=== PATIENT | male | born 2000 | race Caucasian/White ===

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

== ENCOUNTER 2022-06-10 17:49 | Emergency (ER) | payer BC, SELFPAY ==
--- NOTE | 2022-06-10 17:52 | ED.SKABFB ---
HPI - Skin/Abscess/Foreign Bdy General Chief complaint: Skin/Abscess/Foreign Body Stated complaint: Skin Sore Time Seen by Provider: 06/10/22 17:53 Source: patient and RN notes reviewed History of Present Illness HPI narrative: Patient is a 22-year-old male who presents the urgent care with complaints of a rash to bilateral armpits. Patient states he noticed it 2 to 3 days ago under the right arm and is now under the left as well. Patient states that he does sweat a lot and plays football. Patient has not used any new creams, detergents, lotions or deodorant. Patient has not done anything [id number] for his symptoms. No other acute complaints. No acute distress noted. Patient aware of the plan of care. Some parts of this dictation were generated by voice recognition software and may contain typographical and/or grammatical inaccuracies. Related Data Allergies Allergy/AdvReac Type Severity Reaction Status Date / Time No Known Allergies Allergy Unknown Verified 06/10/22 18:00 Review of Systems Review of Systems: CONSTITUTIONAL: Denies fever, chills, or sweats. EYES: Denies visual changes, redness, or discharge. ENT: Denies rhinorrhea, congestion, sore throat, or otalgia. CARDIOVASCULAR: Denies chest pain, palpitations, or edema. RESPIRATORY: Denies cough or dyspnea. GASTROINTESTINAL: Denies abdominal pain, nausea, vomiting, or diarrhea. GENITOURINARY: Denies dysuria or hematuria. SKIN: Reports of a rash under both arms MUSCULOSKELETAL: Denies back pain, joint pain, or myalgia. NEUROLOGIC: Denies headache, numbness, or weakness. All other systems reviewed are negative, except as documented in HPI. PMFSH Comments At the time of my signature, I reviewed and agree with the nursing past medical, surgical, social, and family history. There is no relevant family history pertinent to the patient complaint. Exam Narrative: GENERAL: This is a well-nourished, well-developed patient, in no apparent distress. HEAD: normocephalic, atraumatic. EYES: PERRL. Sclera clear/white. Vision is grossly intact. EARS: External ears normal NOSE: External nose normal with no obvious nasal discharge, nares without redness, no rhinorrhea. THROAT: Mucous membranes moist NECK: Neck supple SKIN: Diffuse Yvonne dermatitis noted to bilateral axilla, moderate erythema NEURO: awake, alert, and oriented to person, place and time. There were no obvious focal neurologic abnormalities. EXTREMITIES: No clubbing, cyanosis, or edema. Course Course Level of Care: Express Care Visit Vital Signs Vital signs: Vital Signs Temperature 98.2 F 06/10/22 18:01 Pulse Rate 66 06/10/22 18:01 Respiratory Rate 16 06/10/22 18:01 Blood Pressure 175/83 H 06/10/22 18:01 Pulse Oximetry 99 06/10/22 18:01 Oxygen Delivery Room Air 06/10/22 18:01 Temperature 98.2 F 06/10/22 18:01 Pulse Rate 66 06/10/22 18:01 Respiratory Rate 16 06/10/22 18:01 Blood Pressure 175/83 H 06/10/22 18:01 Pulse Oximetry 99 06/10/22 18:01 Oxygen Delivery Room Air 06/10/22 18:01 Reviewed-patient is informed that they may have pre-hypertension or hypertension based on a blood pressure reading in the department. I recommend the patient call the primary care provider listed on their discharge instructions or a physician of their choice this week to arrange follow-up for further evaluation of possible pre-hypertension or hypertension. MDM - Skin/Abscess/Foreign Bdy MDM Narrative Medical decision making narrative: Advised the patient to take the Diflucan as directed. 1 tablet once a week, for 4 weeks. Use the prescription cream very lightly to bilateral areas. Be aware that sweating and moist areas will make the rash worse. Keep your underarms very dry. Follow-up with your PCP within 2 to 5 days or for worsening symptoms or failure to improve. Differential Diagnosis Differential diagnosis: Likely abscess of skin or subcutaneous tissue, viral exanthem, dermatop
[2022-06-10 18:01] VITALS: BP 175/83; PULSE 66; RESP 16; TEMP 36.8; O2SAT 99
== END 2022-06-10 18:13 | disposition home or self-care (01) ==
PROVIDERS: Emergency Provider Nurse Practitioner Family; PCP Nurse Practitioner Family
DX: B37.2 Candidiasis of skin and nail (principal)
CPT/HCPCS: 99213; G0463